=== PATIENT | female | born 1995 ===

== ENCOUNTER 2016-10-21 12:02 | Emergency (ER) | payer SELFPAY ==
--- NOTE | 2016-10-25 08:27 | ER ---
ADMIT: 10/21/2016 RM/LOC: ER [facility] MR#: [id number] [facility] [address] [place], [place] [id number] JUVENCIO REGALADO [address] [place] [address] Emergency Room Report SEX: F AGE: 21 : 1995 DATE: 10/21/2016 ADDENDUM: This patient comes into the ER because she has had a cough, cold, and fever for the last 3 days. She also has a headache. She has been taking Robitussin. On physical exam, her lungs are clear. Her O2 saturation is normal. Posterior pharynx is cobblestone in appearance. DIAGNOSIS: Upper respiratory infection. We will have her push fluids, rest, follow up with her primary as needed. Please see my T-sheet. [facility] / Jose Gamboa MD / adrian JOB #: [id number] CC: Jose Gamboa MD, Attending Physician Arpit Haley MD, Family Physician
== END 2016-10-21 14:03 | disposition home or self-care (01) ==
LOC: ER 12:02
DX: J06.9 Acute upper respiratory infection, unspecified (principal)